=== PATIENT | male | born 1985 | race Caucasian/White ===

== ENCOUNTER 2016-11-16 00:31 | Emergency (ER) | payer OTHER ==
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
[2016-11-16 03:26] VITALS: BP 100/51; PULSE 86; RESP 18; TEMP 98.1
== END 2016-11-16 03:25 | disposition home or self-care (01) ==
LOC: EC 00:31
DX: F25.9 Schizoaffective disorder, unspecified (principal); F31.9 Bipolar disorder, unspecified; F41.9 Anxiety disorder, unspecified; F17.200 Nicotine dependence, unspecified, uncomplicated; Z79.899 Other long term (current) drug therapy; Z88.5 Allergy status to narcotic agent
CPT/HCPCS: 82075; 99284

== ENCOUNTER 2016-12-15 13:33 | Emergency (ER) | payer OTHER ==
[2016-12-15 13:58] VITALS: BP 113/73; PULSE 105; RESP 18; TEMP 98
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
== END 2016-12-15 14:30 | disposition home or self-care (01) ==
LOC: EC 13:33
DX: G89.29 Other chronic pain (principal); M54.5 Low back pain; R20.9 Unspecified disturbances of skin sensation; F31.9 Bipolar disorder, unspecified; F17.200 Nicotine dependence, unspecified, uncomplicated; Z79.899 Other long term (current) drug therapy; Z88.5 Allergy status to narcotic agent
CPT/HCPCS: 99283

== ENCOUNTER 2018-01-31 03:42 | Emergency (ER) | payer OTHER ==
[2018-01-31 03:58] VITALS: BP 126/82; PULSE 80; RESP 16; TEMP 98.7
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
== END 2018-01-31 04:23 | disposition home or self-care (01) ==
LOC: EC 03:42
DX: Z59.0 Homelessness (principal); F25.0 Schizoaffective disorder, bipolar type; F25.1 Schizoaffective disorder, depressive type; F17.200 Nicotine dependence, unspecified, uncomplicated; Z79.899 Other long term (current) drug therapy; Z88.5 Allergy status to narcotic agent
CPT/HCPCS: 99283

== ENCOUNTER 2021-06-12 18:55 | Inpatient (IN) | payer MEDICAID, OTHER ==
[2021-06-12 21:47] LABS: Amphetamine Screen,Urine Detected (NotDetected); Barbiturate Screen,Urine Not Detected (NotDetected); Benzodiazepines Screen,Urine Not Detected (NotDetected); Cocaine Screen,Urine Detected (NotDetected); Methadone Screen, Urine Not Detected (NotDetected); Opiate Screen,Urine Not Detected (NotDetected); Oxycodone Screen, Urine Not Detected (NotDetected); Phencyclidine Screen,Urine Not Detected (NotDetected); Tricyclic Antidepressant,Urine Not Detected (NotDetected); Urn Cannabinoid Scrn Detected (NotDetected)
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
[2021-06-13 00:08] LABS: Basophils # (A) 0.1 k/uL (0-0.2); Basophils % (A) 1 %; Eosinophils # (A) 0.4 k/uL (0-0.7); Eosinophils % (A) 3 %; HCT 43.6 % (39.0-53.0); HGB 14.7 gm/dL (13.0-17.5); Lymphocytes # (A) 4.7 k/uL (1.0-4.8); Lymphocytes % (A) 41 %; MCH 30.2 pg (25.0-35.0); MCHC 33.8 g/dL (31.0-37.0); MCV 89.2 fL (80.0-100.0); Mean Platelet Volume 6.8; Monocytes # (A) 0.7 k/uL (0-1.0); Monocytes % (A) 6 %; Neutrophils # (A) 5.6 k/uL (1.3-7.7); Neutrophils % (A) 48 %; Platelet Count 316 k/uL (150-450); RBC 4.89 m/uL (4.30-5.90); RDW 14.2 % (11.5-15.5); WBC 11.6 k/uL (3.8-10.6)
[2021-06-13 00:25] LABS: ALT 94 U/L (4-49); AST 43 U/L (17-59); Acetaminophen <10.0 ug/mL; African American GFR (CKD) >90 (>60 ml/min/1.73 sqM); Albumin 3.8 g/dL (3.5-5.0); Alcohol <10 mg/dL; Alkaline Phosphatase 78 U/L (38-126); Anion Gap 8 mmol/L; Blood Urea Nitrogen 13 mg/dL (9-20); Calcium 9.1 mg/dL (8.4-10.2); Carbon Dioxide 25 mmol/L (22-30); Chloride 100 mmol/L (98-107); Glucose 144 mg/dL (74-99); Non-African American GFR(CKD) >90 (>60 ml/min/1.73 sqM); Potassium 3.8 mmol/L (3.5-5.1); Salicylate <1.0 mg/dL; Sodium 133 mmol/L (137-145); Total Bilirubin 0.4 mg/dL (0.2-1.3); Total Protein 6.4 g/dL (6.3-8.2)
[2021-06-13 00:31] LABS: Valproic Acid (Depakene) <10.0 ug/mL
[2021-06-13] MEDS ORDERED: LORazepam 1 MG TAB PO PRN (10:21)
[2021-06-13] MEDS ORDERED: MAG HYDROX/AL HYDROX/SIMETH 30 ML CUP PO PRN (10:21)
[2021-06-13] MEDS ORDERED: ACETAMINOPHEN TAB 325 MG TAB PO PRN (10:21)
[2021-06-13] MEDS ORDERED: MAGNESIUM HYDROXIDE 2,400 MG/10 ML CUP PO PRN (10:21)
[2021-06-13] MEDS ORDERED: LORazepam 2 MG/ML INJ IM PRN (10:28)
[2021-06-13] MEDS: ARIPiprazole 15 MG TAB PO SCH ×2 (12:42→23:34)
--- NOTE | 2021-06-13 12:57 | HP ---
HISTORY AND PHYSICAL DATE OF SERVICE: 06/13/2021 IDENTIFYING DATA: The patient is a 35-year-old male. His living circumstances are uncertain. He presented to the ED for evaluation. CHIEF COMPLAINT: The patient apparently made an overdose of multiple psychiatric medications. He has a history of substance abuse issues. HISTORY OF PRESENTING ILLNESS: The patient was the primary source of information, though he gave very limited information and the reliability of his report was uncertain. It is noteworthy that he had 3 psychiatric admissions in 2013. He says that since then he has not had a psychiatric admission. He said that he most recently has been on Zyprexa though he could not remember the dose. He said he has been followed up through [facility]. When I asked him when the last time he saw anyone at [facility], he said, "it has been a long time." When I asked about Zyprexa, he says he has not been taking it for quite some time, though again he was vague on specifics. He said he was not sure about the dose and also states that he did not feel it was helpful. He acknowledges that his mood has been depressed. He was unable to give me any more details than that. He says he has auditory hallucinations and paranoid delusions. He did not provide details. He denied any clear issues of manic symptoms. He says occasionally he gets panic attacks. He was vague about the extent to which he experiences anxiety. He noted that his sleep was up and down. He did not give much more information about his general daily functioning. When I asked him about his living circumstances, he stated "I do not want to talk about that." When I asked about substance abuse issues, he states that he does not drink regularly. He said that he does not smoke marijuana regularly, though will smoke it when it is available. He did not give me any more specifics. He acknowledges that he also uses street drugs. In general, he seemed to acknowledge that he has some fairly regular use of abusive substances. He currently is not taking any psychotropic medications. He is admitted for further evaluation. SUBSTANCE USE HISTORY: As above. PAST MEDICAL HISTORY: Patient reported no current or chronic general health complaints. He reports that he does not take any medications for general health issues. FAMILY AND SOCIAL HISTORY: The patient did not provide any information. MENTAL STATUS EXAM: Patient sat in a slumped posture. He had some restlessness. Mostly he looked down and barely gave any eye contact at all. Psychomotor activity was slowed. He responded to questions mostly with 1 or 2 word responses. He was not spontaneous or interactive. His affect was flat. He spoke in a monotone soft voice. His mood was depressed he seemed significantly distressed. He indicates he is having auditory hallucinations. He acknowledges that he had thoughts of harm, but did not give details. He apparently had overdosed on some amount of medications. On cognitive exam, he did not make an effort to respond to formal cognitive questions. He appeared to be oriented to circumstances and surroundings. PHYSICAL EXAM: As per medical consultation. ASSESSMENT: This 35-year-old male has a past diagnosis of schizoaffective disorder. He currently presents with depression and psychotic symptoms in the face of substance abuse. STRENGTHS: Include his willingness to come to the hospital. WEAKNESS: Includes his inability to give a reliable history of his current situation. DIAGNOSES: 1. 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 2. Rule out schizoaffective disorder. 3. Substance abuse and likely dependence with acute substance withdrawal. RECOMMENDATIONS: Patient will be admitted for comprehensive medical psychiatric and psychosocial evaluation. We will engage the patient in individual and group therapeutic activities. I discussed medication issues with the patient. I suggested that Abilify might be one medication that might be helpful. He was in agreement with trying Abilify given that he did not provide much other information. It seems like the best approach will be to keep his medications limited to see if he shows any response and then ability to broaden the history. At this point, I will start him on Abilify 15 mg twice a day. The aim of Abilify is to help address psychotic symptoms and reduce physiologic stress response relating to acute substance withdrawal. I briefly reviewed medication issues with the patient though kept it limited as he was not inclined to engage in the conversation to any extent. We will focus on stabilization and discharge planning. CHACORTA / ALISHAN: [id number] /
--- NOTE | 2021-06-13 21:30 | P.PN ---
Progress Note - Text Progress Note Date: 06/13/21 The patient refused to be seen or evaluated. Will attempt again tomorrow.
[2021-06-14] MEDS: NICOTINE 14MG/24HR PATCH TRANSDERM SCH (08:00)
[2021-06-14] MEDS: ARIPiprazole 15 MG TAB PO SCH ×2 (08:00→22:25)
[2021-06-14 08:30] LABS: Basophils # (A) 0.1 k/uL (0-0.2); Basophils % (A) 1 %; Eosinophils # (A) 0.3 k/uL (0-0.7); Eosinophils % (A) 3 %; HCT 49.3 % (39.0-53.0); HGB 16.9 gm/dL (13.0-17.5); Lymphocytes # (A) 3.2 k/uL (1.0-4.8); Lymphocytes % (A) 32 %; MCH 29.9 pg (25.0-35.0); MCHC 34.2 g/dL (31.0-37.0); MCV 87.4 fL (80.0-100.0); Mean Platelet Volume 7.4; Monocytes # (A) 0.8 k/uL (0-1.0); Monocytes % (A) 8 %; Neutrophils # (A) 5.3 k/uL (1.3-7.7); Neutrophils % (A) 54 %; Platelet Count 363 k/uL (150-450); RBC 5.64 m/uL (4.30-5.90); RDW 13.3 % (11.5-15.5); WBC 9.8 k/uL (3.8-10.6)
[2021-06-14 08:52] LABS: ALT 129 U/L (4-49); AST 63 U/L (17-59); African American GFR (CKD) >90 (>60 ml/min/1.73 sqM); Albumin 4.5 g/dL (3.5-5.0); Alkaline Phosphatase 86 U/L (38-126); Anion Gap 11 mmol/L; Blood Urea Nitrogen 11 mg/dL (9-20); Calcium 9.7 mg/dL (8.4-10.2); Carbon Dioxide 25 mmol/L (22-30); Chloride 101 mmol/L (98-107); Glucose 96 mg/dL (74-99); Non-African American GFR(CKD) >90 (>60 ml/min/1.73 sqM); Potassium 4.1 mmol/L (3.5-5.1); Sodium 137 mmol/L (137-145); Total Bilirubin 0.6 mg/dL (0.2-1.3); Total Protein 7.4 g/dL (6.3-8.2)
[2021-06-14] MEDS ORDERED: FLUoxetine HCL 20 MG CAP PO STA (11:11)
--- NOTE | 2021-06-14 11:15 | P.PN ---
Progress Note - Text Progress Note Date: 06/14/21 Interval History: Patient was seen resting in bed and was directable and agreeable to speak with the race and sports book writer in his room. He continues endorse significant depression. He remains primarily isolative himself in his room. He continues to endorse low energy, low motivation, and feelings of hopelessness as well as suicidal ideation. He is denying any homicidal ideation, intention, and/or plan. He is not reporting any issues regarding his appetite. The patient has been adherent with his medications and is not endorsing any significant side effects at this time. The patient is uncertain of his options upon discharge. Mental Status Exam: General Appearance: Patient appears to be stated age is alert, directable, and cooperative. Behavior: Patient is lying down in bed without any agitated behavior. Speech: Patient's speech is fluent and nonpressured. Monotone. Low in volume. Mood/Affect: Mood is depressed, affect is congruent and flat. Suicidality/Homicidality: Patient endorses suicidal ideation or homicidal ideation. Perceptions: Patient denies any visual hallucinations and denies any auditory hallucinations Though content/process: There is no evidence of any delusional thought content and thought process is linear and goal-directed. Memory and concentration: AOX3, grossly intact for the purposes of this session Judgment and insight: Improving mildly Vital Signs Temp 97.3 F L 06/14/21 01:43 Pulse 59 L 06/14/21 01:43 Resp 16 06/14/21 01:43 BP 110/73 06/14/21 01:43 Pulse Ox 95 06/14/21 01:43 Intake & Output 06/13/21 06/14/21 06/14/21 18:59 06:59 18:59 Weight 88.451 kg Laboratory Results - Last 24 Hours 06/14/21 06/14/21 07:35 07:35 WBC 9.8 RBC 5.64 Hgb 16.9 Hct 49.3 MCV 87.4 MCH 29.9 MCHC 34.2 RDW 13.3 Plt Count 363 MPV 7.4 Neutrophils % 54 Lymphocytes % 32 Monocytes % 8 Eosinophils % 3 Basophils % 1 Neutrophils # 5.3 Lymphocytes # 3.2 Monocytes # 0.8 Eosinophils # 0.3 Basophils # 0.1 Sodium 137 Potassium 4.1 Chloride 101 Carbon Dioxide 25 Anion Gap 11 BUN 11 Creatinine 0.99 Est GFR (CKD-EPI)AfAm >90 Est GFR (CKD-EPI)NonAf >90 Glucose 96 Calcium 9.7 Total Bilirubin 0.6 AST 63 H ALT 129 H Alkaline Phosphatase 86 Total Protein 7.4 Albumin 4.5 TSH 0.188 L Assessment Major depressive disorder, recurrent, severe, with psychotic features Polysubstance abuse Plan: -Patient continues to meet criteria for inpatient psychiatric admission for symptom stabilization and safety. Patient has signed adult voluntary form and medication consent and was placed in patient's chart. -Medications: Continue Abilify 15 mg by mouth twice a day for mood augmentation and psychosis Start Prozac 20 mg by mouth daily for depression -When necessary Ativan and Haldol for agitation/aggression. -NRT - nicotine patch -SW on board for discharge planning. Encouraged the patient to participate in milieu.
[2021-06-14 15:08] LABS: Chol/HDL Ratio 5.04 Ratio; LDL Cholesterol,Calculated 117.3 mg/dL (0.0-131.0)
[2021-06-15 07:10] VITALS: BP 148/74; PULSE 62; RESP 18; TEMP 97.6
[2021-06-15] MEDS: ARIPiprazole 15 MG TAB PO SCH (07:47)
[2021-06-15] MEDS: NICOTINE 14MG/24HR PATCH TRANSDERM SCH (07:58)
[2021-06-15] MEDS ORDERED: FLUoxetine HCL 10 MG CAP PO SCH (09:00)
[2021-06-15] MEDS ORDERED: diphenhydrAMINE 25 MG CAP PO STA (10:55)
== END 2021-06-15 14:56 | disposition home or self-care (01) | DRG 918 ==
LOC: EC 18:55 → 3MHU 06-13 10:18
PROVIDERS: ADMIT Psychiatry & Neurology Psychiatry; ATTEND Psychiatry & Neurology Psychiatry
DX: T50.912A Poisoning by multiple unspecified drugs, medicaments and biological substances, intentional self-harm, initial encounter (principal); R45.851 Suicidal ideations; F33.3 Major depressive disorder, recurrent, severe with psychotic symptoms; Z20.822 Contact with and (suspected) exposure to COVID-19; F17.210 Nicotine dependence, cigarettes, uncomplicated; F41.0 Panic disorder [episodic paroxysmal anxiety]; F43.21 Adjustment disorder with depressed mood; J45.909 Unspecified asthma, uncomplicated; Z87.828 Personal history of other (healed) physical injury and trauma; Z88.5 Allergy status to narcotic agent; G89.29 Other chronic pain; M54.2 Cervicalgia; M54.9 Dorsalgia, unspecified
CPT/HCPCS: 36415; 80053; 80061; 80143; 80164; 80179; 80306; 80320; 82075; 83036; 84436; 84439; 84443; 84480; 85025; 87635; 93005; 99285

== ENCOUNTER 2021-07-09 22:50 | Emergency (ER) | payer OTHER ==
[2021-07-09] MEDS ORDERED: BACITRACIN OINT 1 EACH PACKET TOPICAL ONE (23:35)
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
[2021-07-09 23:37] VITALS: BP 128/86; PULSE 93; RESP 16; TEMP 98.1
== END 2021-07-09 23:43 | disposition home or self-care (01) ==
LOC: EC 22:50
DX: S61.215A Laceration without foreign body of left ring finger without damage to nail, initial encounter (principal); J45.909 Unspecified asthma, uncomplicated; F17.200 Nicotine dependence, unspecified, uncomplicated; Z88.5 Allergy status to narcotic agent; W19.XXXA Unspecified fall, initial encounter; Y99.0 Civilian activity done for income or pay
CPT/HCPCS: 99283

== ENCOUNTER 2021-08-28 19:08 | Inpatient (IN) | payer MEDICAID, OTHER ==
[2021-08-28] MEDS ORDERED: HALOPERIDOL LACTATE 5 MG/ML 1 ML VIAL IM STA (20:43)
[2021-08-28] MEDS ORDERED: diphenhydrAMINE 50 MG/ML 1 ML VIAL IM STA (20:43)
[2021-08-28] MEDS ORDERED: LORazepam 2 MG/ML INJ IM STA (20:43)
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
[2021-08-29] MEDS ORDERED: LORazepam 1 MG TAB PO PRN (01:28)
[2021-08-29] MEDS ORDERED: ACETAMINOPHEN TAB 325 MG TAB PO PRN (01:28)
[2021-08-29] MEDS ORDERED: MAGNESIUM HYDROXIDE 2,400 MG/10 ML CUP PO PRN (01:28)
[2021-08-29] MEDS ORDERED: MAG HYDROX/AL HYDROX/SIMETH 30 ML CUP PO PRN (01:28)
[2021-08-29] MEDS ORDERED: HALOPERIDOL LACTATE 5 MG/ML 1 ML VIAL IM PRN (01:28)
[2021-08-29] MEDS: NICOTINE 14MG/24HR PATCH TRANSDERM SCH (09:50)
--- NOTE | 2021-08-29 19:30 | P.PN ---
Subjective Progress Note Date: 08/29/21 Principal diagnosis: Progress note He arrived late and I was briefed regarding his need for admission by [facility] RN Cath. over the phone > Full HP may have to await tomorrow as he was too tired after he was inerviewed earlier at the [facility]. He mumbled to himself at times and rolled back to bed. The precipant for his admsision was related to his Rx non- adherence. he became more delusional in his thinking and found it difficult to adapt to function in the community. He vaguely talked about self-harm at the [facility]. but when he was interviewed, he no longer endorsed serious suicidal or homicidal harm. Self-care was adequate. His affect was somewhat guarded and had poverty of content of speech apathy and social withdrawal was evident. diag: Schizophrenia in relapse. Plan : he may benefit from Depot abilify maintenan and would start on oral abilify before switching to depto Objective - Vital Signs Vital signs: Vital Signs Temp 96.7 F L 08/29/21 02:26 Pulse 75 08/29/21 02:26 Resp 18 08/29/21 02:26 BP 130/70 08/29/21 02:26 Pulse Ox 98 08/29/21 02:26 Intake & Output 08/29/21 08/29/21 08/30/21 06:59 18:59 06:59 Weight 81.647 kg 82.9 kg
[2021-08-30] MEDS: OLANZapine 7.5 MG TAB PO SCH ×3 (00:52→12:54)
[2021-08-30 06:33] VITALS: TEMP 98
[2021-08-30] MEDS: NICOTINE 14MG/24HR PATCH TRANSDERM SCH (10:17)
[2021-08-30 11:54] LABS: Appearance,Urine Clear (Clear); Bilirubin,Urine Negative (Negative); Blood,Urine Negative (Negative); Color,Urine Yellow; Glucose,Urine (UA) Negative (Negative); Ketones,Urine Negative (Negative); Leukocyte Esterase,Urine Negative (Negative); Nitrite,Urine Negative (Negative); Protein,Urine Negative (Negative); Specific Gravity,Urine 1.016 (1.001-1.035); Urobilinogen,Urine <2.0 mg/dL (<2.0)
[2021-08-30 12:16] LABS: Urn Cannabinoid Scrn Detected (NotDetected)
[2021-08-30 12:17] LABS: Amphetamine Screen,Urine Detected (NotDetected); Barbiturate Screen,Urine Not Detected (NotDetected); Benzodiazepines Screen,Urine Detected (NotDetected); Cocaine Screen,Urine Detected (NotDetected); Methadone Screen, Urine Not Detected (NotDetected); Opiate Screen,Urine Not Detected (NotDetected); Oxycodone Screen, Urine Not Detected (NotDetected); Phencyclidine Screen,Urine Not Detected (NotDetected); Tricyclic Antidepressant,Urine Not Detected (NotDetected)
--- NOTE | 2021-08-30 18:11 | P.PN ---
Subjective Progress Note Date: 08/30/21 Principal diagnosis: Progress note He was seen again but he refused to get out of bed . He stayed in the dark and talked about sleeping for the whole 24 hours cycle. Full H/P to be delayed until Aug 31, 2020. It is evident that he was highly guarded and non-compliant with Rx; He denied he did not take his morning Rx. The issue of self harm continued to fluctuate as he refused to cooperate with the interview. He did not talk much about his risk of self-harm or harm to others but this could not be taken as his absence of suicidal or homicidal ideation. Cognition. oriented. Diagnosis: schizophrenia. TBI comorbid with possible Cognitive impairment. Plan. Inpatient stay is required for him to be stabilized. Consdier Depot Rx. reinforce medication compliance. Full H/p within 24 hrs. Objective - Vital Signs Vital signs: Vital Signs Temp 98.0 F 08/30/21 06:24 Pulse 63 08/30/21 06:24 Resp 18 08/29/21 02:26 BP 102/65 08/30/21 06:24 Pulse Ox 97 08/30/21 06:24 Intake & Output 08/29/21 08/30/21 08/30/21 18:59 06:59 18:59 Weight 82.9 kg - Labs Labs: Abnormal Lab Results - Last 24 Hours (Table) 08/30/21 Range/Units 11:24 Ur Amphetamines Screen Detected H (NotDetected) U Methamphetamines Scrn Detected H (NotDetected) U Benzodiazepines Scrn Detected H (NotDetected) Urine Cocaine Screen Detected H (NotDetected) U Marijuana (THC) Screen Detected H (NotDetected)
[2021-08-31] MEDS: OLANZapine 7.5 MG TAB PO SCH ×2 (01:11→08:40)
[2021-08-31 06:50] VITALS: BP 116/72; PULSE 65; RESP 16
[2021-08-31] MEDS: NICOTINE 14MG/24HR PATCH TRANSDERM SCH (08:40)
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
--- NOTE | 2021-08-31 17:46 | P.HP ---
Psychiatric H&P - . H&P Date: 08/31/21 History & Physical: Allergies Allergy/AdvReac Type Severity Reaction Status Date / Time morphine Allergy Unknown Verified 08/28/21 21:49 Vital Signs Temp 98.0 F 08/31/21 06:49 Pulse 65 08/31/21 06:49 Resp 16 08/31/21 06:49 BP 116/72 08/31/21 06:49 Pulse Ox 97 08/30/21 06:24 Laboratory Last Values Urine Color Yellow 08/30/21 11:24 Urine Appearance Clear (Clear) 08/30/21 11:24 Urine pH 7.0 (5.0-8.0) 08/30/21 11:24 Ur Specific [place] 1.016 (1.001-1.035) 08/30/21 11:24 Urine Protein Negative (Negative) 08/30/21 11:24 Urine Glucose (UA) Negative (Negative) 08/30/21 11:24 Urine Ketones Negative (Negative) 08/30/21 11:24 Urine Blood Negative (Negative) 08/30/21 11:24 Urine Nitrite Negative (Negative) 08/30/21 11:24 Urine Bilirubin Negative (Negative) 08/30/21 11:24 Urine Urobilinogen <2.0 mg/dL (<2.0) 08/30/21 11:24 Ur Leukocyte Esterase Negative (Negative) 08/30/21 11:24 Urine Opiates Screen Not Detected (NotDetected) 08/30/21 11:24 Ur Oxycodone Screen Not Detected (NotDetected) 08/30/21 11:24 Urine Methadone Screen Not Detected (NotDetected) 08/30/21 11:24 Ur Propoxyphene Screen Not Detected (NotDetected) 08/30/21 11:24 Ur Barbiturates Screen Not Detected (NotDetected) 08/30/21 11:24 U Tricyclic Antidepress Not Detected (NotDetected) 08/30/21 11:24 Ur Phencyclidine Scrn Not Detected (NotDetected) 08/30/21 11:24 Ur Amphetamines Screen Detected (NotDetected) H 08/30/21 11:24 U Methamphetamines Scrn Detected (NotDetected) H 08/30/21 11:24 U Benzodiazepines Scrn Detected (NotDetected) H 08/30/21 11:24 Urine Cocaine Screen Detected (NotDetected) H 08/30/21 11:24 U Marijuana (THC) Screen Detected (NotDetected) H 08/30/21 11:24 Coronavirus (PCR) Not Detected (Not Detectd) 08/28/21 20:03 08/31/21 1 admission context He was admitted through the [facility] upon initial evaluation by intake coordinator Tejas who communicated with me regarding the criteria for admission. He was seen at the emergency presenting with Agitation However, he refused to cooperative with the [facility] psychiatric H/P on Aug 29 and Aug 30. He was seen lying in bed and today agreed to be interviwed . Chief Complaint; Rx non=adherence and query Medical issue HPI> With a history of schizoaffective disorder, he appeared to be functional in terms of maintaining a family. The details would have to be clarified independently through family interview. He had one last admisison to [facility] and was discharged to the community. He stated he has been able to maintain his job in the community and urgently wanted to be discharged on Monday after his self- chosen hibernation in this room with the lights turned off for over 48 hours. He did not want to admit his abuse of substances; but on urine toxicology he has been abusing 1. Cocaine 2 Cannabis 3. Benzodiazepine He went through the withdrawal after the acute subclinical intoxication phase with vitals stable. He did not have seizures or tremor. No paradoxical delirium. He denied the severity of his substance use. In the past he was known to be non-compliant with Rx. He did not want to talk about this Monday Emer[facility]. where he "ended the interview abruptly; before he was admitted to psychiatric unit past psychiatric and Substance use: He did not seem to have a clear cut abstinence from substacnes of abuse. He superficially agreed to be following through with the A but has not gone through intensive dual recovery program. TBI : early brain concussion syndrome may have made him more impulsive and having diffculty to follow through protocol. past psycho-social history: He did not talk much about his relationship with his family; We did not have message from his . Whether his family was alert of signs of relapse or whether he had any substances around his home was unknown. He was not interested to have further psychoeducaitonal input and relapse prevention strategies to prevent Psychosis. Mental status exam from Mon to Monday; Very strong negative symptoms and hypersomnia. He may have photosensitivity towards the stimuli. Monday : when he was seen, his blunted affect has largely dissipated. He was lucid coherent with good eye contact. In sharp contrast to his agitation . When he was admitted he was noted to be guarded and on Monday and Monday he refused to communciate with the team. He may have hallucinations from Monday to Monday. Cog; orented. insight and jugement was absent Diagnosis Schizoaffective disorder. in relapse. Comorbid Cocaine, Benzodiazepine and Cannabis use Disorder; with Substance induced Psychosis He would be restarted on antipsychotic and would offere a brief stay 36-year-old man with polysubstance abuse, schizoaffective disorder who came in with an episode of acute psychosis. During my interview, patient became increasingly agitated and no longer wished to speak with me regarding any medical issues that were brought up. Noted in his chart review was positivity of multiple substances in his urine including: Methamphetamine, amphetamine, cocaine, benzodiazepine, marijuana. Patient became quite agitated and ended interview quickly.
--- NOTE | 2021-08-31 17:51 | P.DS ---
Providers Date of admission: 08/29/21 01:34 Expected date of discharge: 08/31/21 Attending physician: Dario Bhandari MD He was discharged today after he was assessed. He was alert and was very eager to leave the unit for resuming his work He did not elaborate on his Substance. He commened that Zyprexa 7.5 mg po bid has helped him to recover from his acute psychotic episode, He did not have negative symptoms with no hallucinatioins or delusion. He continued to deny his substance use. I reinforced. him the need to continue to take Rx and to follow through with [facility]. He was agreeable with the plan and left after he picked up; his 30 day supp;ly of rx. discharge diagnosis; Schizo-affective disorder. No BENZO was prescribed. comorbid Cocaine, Cannabis MARIA [place] ROSARIO USE disroder. abuse pattern Discharge; Olanzapine 7.5 mg po bid with no EPS Consults: 08/29/21 01:28 Consult Physician Routine Consulting Provider: [facility] Consult Reason/Comments: h and p Do you want consulting provider notified?: Yes, Notify in am Primary care physician: Stated None Patient Condition at Discharge: Fair Plan - Discharge Summary New Discharge Prescriptions: New OLANZapine [ZyPREXA] 7.5 mg PO BID 30 Days #60 tab Discharge Medication List OLANZapine [ZyPREXA] 7.5 mg PO BID 30 Days #60 tab 08/31/21 [Rx] Follow up Appointment(s)/Referral(s): [facility] [Outside] - 09/07/21 10:00 am (With Collette) [facility] Patient Instructions/Handouts: Bipolar Disorder (DC), Schizoaffective Disorder (DC) Activity/Diet/Wound Care/Special Instructions: Activity and diet as tolerated. Avoid the use of street drugs and alcohol. Take all medications as prescribed. When you are in need of refills on your medications please contact your medical provider and/or outpatient psychiatrist to have this done. Please go to scheduled outpatient appointment for aftercare treatment. If symptoms return or become worse, call the crisis line at and/or go to the nearest emergency room for evaluation
== END 2021-08-31 16:05 | disposition home or self-care (01) | DRG 885 ==
LOC: EC 19:08 → 3MHU 08-29 01:34
PROVIDERS: ADMIT Psychiatry & Neurology Psychiatry; ATTEND Psychiatry & Neurology Psychiatry
DX: F25.9 Schizoaffective disorder, unspecified (principal); F31.9 Bipolar disorder, unspecified; F19.10 Other psychoactive substance abuse, uncomplicated; Z20.822 Contact with and (suspected) exposure to COVID-19; F41.9 Anxiety disorder, unspecified; I10 Essential (primary) hypertension; F17.200 Nicotine dependence, unspecified, uncomplicated; J45.909 Unspecified asthma, uncomplicated; G89.29 Other chronic pain; M54.2 Cervicalgia; M54.9 Dorsalgia, unspecified; Z87.828 Personal history of other (healed) physical injury and trauma; Z71.51 Drug abuse counseling and surveillance of drug abuser; Z88.5 Allergy status to narcotic agent; Z80.9 Family history of malignant neoplasm, unspecified
CPT/HCPCS: 80306; 81003; 82075; 87635; 96372; 99285